=== PATIENT | female | born 1970 | race Caucasian/White ===

== ENCOUNTER 2017-12-15 14:42 | Emergency (ER) | payer SELFPAY ==
[2017-12-15] MEDS ORDERED: Morphine INJ* 10 MG/ML 1 ML CARPUJECT IV ONE (14:53)
[2017-12-15] MEDS ORDERED: Ondansetron ODT TAB* 4 MG PO ONE (14:53)
[2017-12-15] MEDS ORDERED: Morphine VIAL* 4 MG/ML VIAL (1 ml vial) IV ONE ×2 (15:02→15:29)
[2017-12-15] MEDS: Morphine VIAL* 4 MG/ML VIAL (1 ml vial) IV ONE ×2 (15:07→15:26)
[2017-12-15] MEDS ORDERED: Midazolam* 1 MG/ML 5 ML VIAL (5 MG) ONE (16:55)
[2017-12-15] MEDS ORDERED: Naloxone* 0.4 MG/ML 1 ML VIAL ONE (16:56)
[2017-12-15] MEDS ORDERED: fentaNYL* 50 MCG/ML 2 ML VIAL (100 MCG VIAL) ONE (16:56)
[2017-12-15] MEDS ORDERED: Flumazenil* 0.1 MG/ML 5 ML MDV ONE (16:56)
--- NOTE | 2017-12-15 16:56 | RAD ---
Indication: Right shoulder pain after fall 3 views of the right shoulder are reviewed. The right humeral head is dislocated. There is presumed anterior inferior dislocation. IMPRESSION: Suboptimal views with likely anterior inferior dislocation of the humerus head.
--- NOTE | 2017-12-15 18:52 | RAD ---
Indication: Reduction of anterior dislocation. 3 views of the right shoulder demonstrates reduction of previously identified anterior dislocation of the right humerus. AC joint arthritis is noted. IMPRESSION: Reduction of previously identified anterior inferior dislocation of the right humerus.
--- NOTE | 2017-12-15 19:08 | ED ---
Sonido Amaya Stephanie, scribed for Sadiq Wallace MD on 12/15/17 at 1459 . Upper Extremity Pain - HPI Summary HPI Summary: The pt is a 47 y/o F BIBA to the ED with c/o R shoulder pain that began at 14: 30 today s/p trip and fall. The pt states her pain is located at the top of her shoulder near the head of the humerus. Symptoms include R hand numbness. She denies R hand pain and pain over her R clavicle. The pt denies head trauma. The pt stated she landed with her arm extended at the shoulder joint flexed at the elbow. - History of Current Complaint Chief Complaint: EDSsarahJamie Stated Complaint: RT SHOULDER PAIN Time Seen by Provider: 12/15/17 14:57 Hx Obtained From: Patient Mechanism Of Injury: Fall From A Standing Position Onset/Duration: Started Minutes Ago, Still Present Timing: Constant Pain Location: Shoulder - R Aggravating Factor(s): Movement Alleviating Factor(s): Nothing Associated Signs & Symptoms: Positive: Numbness/Tingling - R hand - Allergies/Home Medications Allergies/Adverse Reactions: Allergies Allergy/AdvReac Type Severity Reaction Status Date / Time Penicillins Allergy Unknown Verified 12/15/17 14:52 Reaction Details PMH/Surg Hx/FS Hx/Imm Hx Sensory History: Denies: Hx Legally Blind EENT History: Denies: Hx Deafness - Family History Known Family History: Negative: Renal Disease - Social History Occupation: Unemployed Lives: Alone Review of Systems Negative: Fever Musculoskeletal: Negative - R hand pain Positive: Other - R shoulder pain Positive: Numbness - R hand. Negative: Slurred Speech All Other Systems Reviewed And Are Negative: Yes Physical Exam - Summary Physical Exam Summary: General: well-appearing, no pain distress Skin: warm, color reflects adequate perfusion, dry Head: normal Eyes: EOMI, JASS ENT: normal Neck: supple, nontender Respiratory: CTA, breath sounds present Cardiovascular: RRR Abdomen: soft, nontender Bowel: present Musculoskeletal: strength intact, tender to R shoulder Neurological: sensory/motor intact, A&O x3 Psychological: affect/mood appropriate Triage Information Reviewed: Yes Vital Signs On Initial Exam: Initial Vitals Resp 22 12/15/17 15:07 Vital Signs Reviewed: Yes Diagnostics - Vital Signs Vital Signs Temp Pulse Resp BP Pulse Ox 12/15/17 18:46 76 116/82 96 12/15/17 18:30 72 116/79 97 12/15/17 18:15 71 103/80 97 12/15/17 18:01 75 95 12/15/17 18:00 76 133/95 94 12/15/17 17:59 73 118/97 95 12/15/17 17:57 76 129/96 93 12/15/17 17:55 78 122/97 96 12/15/17 17:53 76 130/97 96 12/15/17 17:51 75 131/101 93 12/15/17 17:49 79 116/95 94 12/15/17 17:47 78 115/85 97 12/15/17 17:45 78 127/80 94 12/15/17 17:43 78 118/102 94 12/15/17 17:41 78 119/93 94 12/15/17 17:39 81 147/96 95 12/15/17 17:37 84 130/100 95 12/15/17 17:35 81 136/103 94 12/15/17 17:32 84 140/104 93 12/15/17 17:31 84 123/97 98 12/15/17 17:28 76 119/101 96 12/15/17 17:27 75 128/80 100 12/15/17 17:25 79 121/100 100 12/15/17 17:23 77 150/92 100 12/15/17 17:21 78 141/84 100 12/15/17 17:04 77 129/87 100 12/15/17 17:00 70 95 12/15/17 16:50 70 138/109 96 12/15/17 16:29 65 98 12/15/17 16:16 18 12/15/17 15:50 75 134/87 100 12/15/17 15:26 14 12/15/17 15:20 68 141/86 98 12/15/17 15:13 98 F 69 20 160/70 99 12/15/17 15:11 81 99 12/15/17 15:07 22 - Laboratory Lab Statement: Any lab studies that have been ordered have been reviewed, and results considered in the medical decision making process. - Radiology Shoulder XRay Xray Interpretation: Positive (See Comments) Radiology Interpretation Completed By: Radiologist - Suboptimal views with likely anterior inferior dislocation of the humerus head. ED physician has reviewed this report. Course/Dx - Course Course Of Treatment: MODERATE SEDATION PERFORMED IN ED BY MYSELF; SEE MODERATE SEDATION PAPERWORK. SHOULDER REDUCED BY MID LEVEL. PATIENT REPORTS SOME TINGLING IN THE MEDIAN NERVE DISTRIBUTIN BEFORE AND AFTER THE REDUCTION. OTHERWISE VASCULAR/NEUROLOGICALLY INTACT AFTER REDUCTION. F/U ORTHO; RETURN IF WORSE. - Diagnoses Provider Diagnoses: Dislocation of right shoulder joint - Critical Care Time Critical Care Time: 30-74 min Discharge - Sign-Out/Discharge Documenting (check all that apply): Discharge/Admit/Transfer - Discharge Plan Condition: Stable Disposition: HOME Prescriptions: HYDROcodone/ACETAMIN 5-325 MG* [Bauxite 5-325 TAB*] 1 tab PO Q4H PRN #20 tab MDD 6 PRN Reason: Pain Patient Education Materials: Shoulder Dislocation Exercises (GEN), Shoulder Dislocation (ED), How to Use a Sling (ED) Referrals: Jeffery Alexander MD [Medical Doctor] - [facility] [Provider Group] Additional Instructions: FOLLOW UP WITH ORTHOPEDICS. CALL 12/17/17, IN THE MORNING TO ARRANGE FOLLOW UP. RETURN TO THE EMERGENCY DEPARTMENT FOR ANY WORSENING OF YOUR CONDITION OR QUESTIONS OR CONCERNS. - Billing Disposition and Condition Condition: STABLE Disposition: HOME The documentation as recorded by the Sonido nelson Stephanie accurately reflects the service I personally performed and the decisions made by me, Sadiq Wallace MD.
[2017-12-15 20:27] VITALS: BP 144/75
== END 2017-12-15 20:26 | disposition home or self-care (01) ==
LOC: ED 14:42
DX: S43.014A Anterior dislocation of right humerus, initial encounter (principal); W01.0XXA Fall on same level from slipping, tripping and stumbling without subsequent striking against object, initial encounter; Y92.9 Unspecified place or not applicable; Z88.0 Allergy status to penicillin
CPT/HCPCS: 23650; 96374; 96375; 96376; 99285; A9270-GY; J2250; J2270; J2310; J3010